=== PATIENT | female | born 1970 | race Caucasian/White ===

== ENCOUNTER 2021-12-22 21:26 | Emergency (ER) | payer MEDICAID ==
[~2021-12-22] VITALS: Ht 167.6 cm; Wt 87.1 kg
[~2021-12-22 21:26] MED LIST: ALBU-118 IH; FLUT1DSK4 IH
[2021-12-22 21:43] VITALS: BP 156/89
--- NOTE | 2021-12-22 21:49 | NUR ---
patient to [facility] ambulatory
[2021-12-22] MEDS ORDERED: HYDROcodone/APAP 10/325 MG 1 TAB TAB PO STA (23:23)
[2021-12-22] MEDS ORDERED: IBUPROFEN 600 MG TAB PO ONE (23:25)
[2021-12-23] MEDS ORDERED: ACET-10509 PO (00:29)
[2021-12-23] MEDS ORDERED: IBUP-2213 PO (00:30)
[2021-12-23 00:38] VITALS: BP 156/89
--- NOTE | 2021-12-23 00:38 | NUR ---
Patient discharged with v/s stable. Written and verbal after care instructions given and explained. Patient alert, oriented and verbalized understanding of instructions. Wheel Chair Assisted to lobby. All questions addressed prior to discharge. ID band removed. Patient advised to follow up with PMD. Rx of tylenol extra strength tab and ibuprofen given. Patient educated on indication of medication including possible reaction and side effects. Opportunity to ask questions provided and answered.
== END 2021-12-23 00:38 | disposition home or self-care (01) ==
LOC: MED 21:26
DX: S92.535A Nondisplaced fracture of distal phalanx of left lesser toe(s), initial encounter for closed fracture (principal); J45.909 Unspecified asthma, uncomplicated; Z79.899 Other long term (current) drug therapy; W22.8XXA Striking against or struck by other objects, initial encounter; Y93.89 Activity, other specified; Y92.89 Other specified places as the place of occurrence of the external cause; Y99.8 Other external cause status
CPT/HCPCS: 73660; 99283

== ENCOUNTER 2022-09-19 21:30 | Inpatient (IN) | payer MEDICAID ==
[~2022-09-19] VITALS: Ht 167.6 cm; Wt 85.7 kg
[~2022-09-19 21:30] MED LIST changes: +ACET-10509 PO; +IBUP-2213 PO
--- NOTE | 2022-09-19 21:42 | NUR ---
Dr. SANCHEZ examining patient in triage.
[2022-09-19] MEDS ORDERED: ALBUTEROL SULFATE/IPRATROPIU 3 ML SOL IH ONE ×3 (21:45)
[2022-09-19] MEDS ORDERED: predniSONE 20 MG TAB PO ONE (21:45)
--- NOTE | 2022-09-19 21:48 | NUR ---
PT TAKEN TO CHAIR C
[2022-09-19 22:16] LABS: ANION GAP 13.9 (8-16); CARBON DIOXIDE 27.9 mmol/L (21-32); CREATININE 0.8 mg/dL (0.6-1.3); POTASSIUM 3.8 mmol/L (3.5-5.1)
[2022-09-19 22:19] LABS: BASOPHILS # (AUTO) 0.1 K/uL (0.00-0.22); BASOPHILS % (AUTO) 0.6 % (0.0-2.0); EOSINOPHILS % (AUTO) 0.1 % (0.0-4.0); HEMATOCRIT 43.4 % (36-48); HEMOGLOBIN 14.5 g/dL (12.0-16.0); LYMPHOCYTES # (AUTO) 1.1 K/uL (2.5-16.5); LYMPHOCYTES % (AUTO) 4.7 % (20.5-51.1); MEAN CORPUSCULAR HEMOGLOBIN 29 pg (27-31); MEAN CORPUSCULAR HGB CONC 33 g/dL (33-37); MEAN CORPUSCULAR VOLUME 87.7 fL (80-94); MONOCYTES # (AUTO) 0.9 K/uL (0.8-1.0); MONOCYTES % (AUTO) 3.7 % (1.7-9.3); NEUTROPHILS # (AUTO) 21.2 K/uL (1.8-7.7); NEUTROPHILS % (AUTO) 90.9 % (42.2-75.2); PLATELET COUNT (AUTO) 341 K/uL (140-450); RED BLOOD CELL COUNT(AUTO) 4.96 MIL/uL (4.20-5.40); RED CELL DISTRIBUTION WIDTH 13.4 % (11.6-13.7); WHITE BLOOD COUNT (AUTO) 23.3 K/uL (4.8-10.8)
[2022-09-19 22:20] LABS: MAGNESIUM 1.2 mg/dL (1.8-2.4)
[2022-09-19] MEDS ORDERED: ACETAMINOPHEN EXTRA STRENGTH 500 MG TAB ONE (22:39)
[2022-09-19] MEDS ORDERED: ACETAMINOPHEN EXTRA STRENGTH 500 MG TAB PO ONE ×2 (22:45→22:55)
[2022-09-20] MEDS ORDERED: AZITHROMYCIN 250 MG TAB PO ONE (00:05)
[2022-09-20] MEDS ORDERED: cefTRIAXone 1,000 MG VIAL ONE ×2 (00:59→23:46)
[2022-09-20] MEDS ORDERED: ALBUTEROL SULFATE/IPRATROPIU 3 ML SOL IH ONE ×2 (01:20→01:22)
--- NOTE | 2022-09-20 07:17 | NUR ---
Pt report given to STEPHANIE GIVENS. Transfer of care at this time.
--- NOTE | 2022-09-20 08:13 | NUR ---
PT RECEIVED, CARE ASSUMED. PT LAYING IN BED ASLEEP. NO ACUTE DISTRESS NOTED. WILL CONTINUE TO MONITOR. NOTED V/S
[2022-09-20] MEDS ORDERED: SODIUM PHOS / POTASSIUM PHOS 1 PKT PDR PO PRN (08:45)
[2022-09-20] MEDS ORDERED: ACETAMINOPHEN 325 MG TAB PO PRN (08:45)
[2022-09-20] MEDS ORDERED: DOCUSATE SODIUM 100 MG GELCAP PO PRN (08:45)
[2022-09-20] MEDS ORDERED: MAGNESIUM OXIDE 400 MG TAB PO PRN (08:45)
[2022-09-20] MEDS ORDERED: MORPHINE SULFATE 2 MG/ML SYR IVP PRN (08:45)
[2022-09-20] MEDS ORDERED: ONDANSETRON 4 MG/2 ML VIAL IM/IVP PRN (08:45)
[2022-09-20] MEDS ORDERED: POTASSIUM CHLORIDE 10 MEQ TABER PO PRN (08:45)
[2022-09-20] MEDS ORDERED: HYDROcodone/APAP 5/325 MG 1 TAB TAB PO PRN (08:45)
[2022-09-20] MEDS: PANTOPRAZOLE 40 MG TABEC PO SCH (09:00)
[2022-09-20 10:10] LABS: HEMATOCRIT 40.9 % (36-48); HEMOGLOBIN 13.6 g/dL (12.0-16.0); MEAN CORPUSCULAR HEMOGLOBIN 29 pg (27-31); MEAN CORPUSCULAR HGB CONC 33 g/dL (33-37); MEAN CORPUSCULAR VOLUME 87.7 fL (80-94); PLATELET COUNT (AUTO) 313 K/uL (140-450); RED BLOOD CELL COUNT(AUTO) 4.66 MIL/uL (4.20-5.40); RED CELL DISTRIBUTION WIDTH 13.5 % (11.6-13.7); WHITE BLOOD COUNT (AUTO) 22.4 K/uL (4.8-10.8)
[2022-09-20 10:22] LABS: ANION GAP 16.1 (8-16); CARBON DIOXIDE 27.5 mmol/L (21-32); CREATININE 1.2 mg/dL (0.6-1.3); POTASSIUM 3.6 mmol/L (3.5-5.1)
[2022-09-20 10:35] LABS: MAGNESIUM 1.6 mg/dL (1.8-2.4); PHOSPHORUS 4.6 mg/dL (2.5-4.9)
[2022-09-20 11:13] LABS: BASOPHILS % (MANUAL) 0 % (0-2); BLASTS, MANUAL % 0 % (0-0); EOSINOPHILS % (MANUAL) 0 % (0-4); LYMPHOCYTES % (MANUAL) 4 % (20-46); METAMYELOCYTES % 0 % (0-0); MONOCYTES % (MANUAL) 4 % (5-12); MYELOCYTES % 0 % (0-0); OTHER CELLS,MANUAL % 0 (0-0); PROMYELOCYTES % 0 % (0-0)
[2022-09-20 11:15] LABS: BUFFY COAT SMEAR PREP N
[2022-09-20] MEDS ORDERED: MAG SULF 2000 MG/WATER PREMIX 50 ML IV SCH (14:32)
[2022-09-20] MEDS ORDERED: DEXTROSE 50% 50 ML SYR IVP PRN (14:35)
[2022-09-20] MEDS ORDERED: INSULIN LISPRO SLIDING SCALE 100 UNITS/ML VIAL SUBQ PRN (14:35)
--- NOTE | 2022-09-20 15:06 | NUR ---
DC PLANNING NICOLE MET W/ PT AT BEDSIDE TO COMPLETE ASSESSMENT. PT REPORTS RESIDING IN A MOBILE HOME WITH HER DAUGHTER AT THE ADDRESS LISTED ON FILE. PT IDENTIFIED HER DAUGHTER LANDEN BURCH, EMERGENCY CONTACT. PT DECLINED AD IN PLACE AND DECLINED AD OFFERED BY SW. PT REPORTS LAST VISIT WITH PCP, DR. SAMSON 1 MONTH AGO. PT REPORTS MEETING WITH PCP NEEDED. PT REPORTS MEDICATION COMPLIANCE AND DENIES BARRIERS IN ACCESS TO MEDICATIONS. PT REPORTS RECEIVING MEDICATION FORM [facility] ON JUNIOR IN POINT LAY, WHEN NEEDED. PT REPORTS BEING INDEPENDENT IN ALL ACTIVITIES AND DENIES USE OF DME. PT REPORTS UTILIZING NEBULIZER AT HOME. PT DENIES HX OF HH, SNF PLACEMENT, DIABETES,DIALYSIS [place]. PT REPORTS DC PLAN IS TO RETURN HOME WHEN STABLE WITH DAUGHTER OR SISTER PROVIDING TRANSPORTATION WHEN STABLE. SW INQUIRED ON RESOURCES NEEDED, PT DECLINED AT THIS TIME. Addendum: 09/20/22 at 1506 by Yang CURIEL Amended: Links added.
--- NOTE | 2022-09-20 15:28 | NUR ---
PATIENT HAS BEEN SCREENED AND CATEGORIZED MODERATE NUTRITION RISK. PATIENT WILL BE SEEN WITHIN 3-5 DAYS OF ADMISSION. 09/23/[address]
[2022-09-20] MEDS: BLOOD GLUCOSE MONITORING 1 DEV DEV FS SCH ×2 (16:30→21:00)
--- NOTE | 2022-09-20 19:30 | NUR ---
RECVD PATIENT ALERT AWAKE ORIENTED AMBULATORY.
[2022-09-20] MEDS: ALBUTEROL SULFATE/IPRATROPIU 3 ML SOL IH PRN (20:08)
[2022-09-20] MEDS ORDERED: AZITHROMYCIN 250 MG TAB PO SCH (21:00)
--- NOTE | 2022-09-20 23:30 | NUR ---
ALL DUE MEDS WAS GIVEN AND TOLERATED WELL.
[2022-09-21] MEDS: ALBUTEROL SULFATE/IPRATROPIU 3 ML SOL IH PRN (02:34)
--- NOTE | 2022-09-21 03:00 | NUR ---
Patient appears to be resting comfortably in bed. Vital Signs within normal limits. Respirations even and unlabored.
--- NOTE | 2022-09-21 07:05 | NUR ---
PT RECEIVED, CARE ASSUMED. PT ASLEEP, NO ACUTE DISTRESS NOTED. WILL CONTINUE TO MONITOR.
[2022-09-21] MEDS: BLOOD GLUCOSE MONITORING 1 DEV DEV FS SCH ×3 (07:30→17:06)
--- NOTE | 2022-09-21 07:30 | NUR ---
REPORT GIVEN TO CHON BROWN, TRANSFER OF CARE AT THIS TIME
[2022-09-21] MEDS: PANTOPRAZOLE 40 MG TABEC PO SCH (09:00)
[2022-09-21 09:10] LABS: ANION GAP 11.6 (8-16); CARBON DIOXIDE 31.9 mmol/L (21-32); CREATININE 0.8 mg/dL (0.6-1.3); POTASSIUM 3.5 mmol/L (3.5-5.1)
[2022-09-21 09:35] LABS: BASOPHILS # (AUTO) 0.1 K/uL (0.00-0.22); BASOPHILS % (AUTO) 0.4 % (0.0-2.0); EOSINOPHILS # (AUTO) 0.2 K/uL (0-0.4); EOSINOPHILS % (AUTO) 1.9 % (0.0-4.0); HEMATOCRIT 40.2 % (36-48); HEMOGLOBIN 13.2 g/dL (12.0-16.0); LYMPHOCYTES # (AUTO) 2.3 K/uL (2.5-16.5); LYMPHOCYTES % (AUTO) 18.1 % (20.5-51.1); MEAN CORPUSCULAR HEMOGLOBIN 29 pg (27-31); MEAN CORPUSCULAR HGB CONC 33 g/dL (33-37); MEAN CORPUSCULAR VOLUME 88.9 fL (80-94); MONOCYTES # (AUTO) 0.7 K/uL (0.8-1.0); MONOCYTES % (AUTO) 5.8 % (1.7-9.3); NEUTROPHILS # (AUTO) 9.2 K/uL (1.8-7.7); NEUTROPHILS % (AUTO) 73.8 % (42.2-75.2); PLATELET COUNT (AUTO) 322 K/uL (140-450); RED BLOOD CELL COUNT(AUTO) 4.52 MIL/uL (4.20-5.40); RED CELL DISTRIBUTION WIDTH 13.6 % (11.6-13.7); WHITE BLOOD COUNT (AUTO) 12.5 K/uL (4.8-10.8)
[2022-09-21] MEDS ORDERED: methylPREDNISolone SS 40 MG/ML VIAL IVP SCH (13:00)
--- NOTE | 2022-09-21 16:45 | NUR ---
ACCU CHECK DONE: 279. PT REFUSED INSULIN.
--- NOTE | 2022-09-21 20:12 | NUR ---
SPOKE WITH DR ANDREWS AND WILL DC PATIENT TO HOME. PT IS AWARE. PATIENT SP02 94% RA. DID A ROAD TEST WITH PT AND TOLERATED WELL. PENDING DC ORDERS
--- NOTE | 2022-09-21 20:34 | NUR ---
PT IS RESTING IN BED. A&OX4 SP02 95% RA. PT IS ADMITTED TO HOSPITAL , BUT IS GETTING DC PER DR ANDREWS. ROAD TEST PT AND TOLERATED WELL. PT ON [employer] BEDSIDE RAILS UPX1. BED AT LOWEST LEVEL
[2022-09-21 21:03] VITALS: BP 133/58
--- NOTE | 2022-09-21 21:19 | NUR ---
Patient discharged with v/s stable. Written and verbal after care instructions given and explained. Patient verbalized understanding. Ambulatory with steady gait. All questions addressed prior to discharge. Advised to follow up with PMD.
== END 2022-09-21 21:19 | disposition home or self-care (01) | DRG 720 ==
LOC: MED 21:30 → MTU 09-20 01:57 → OBSVTOIN 09-20 14:35 → MTU 09-21 18:36
PROVIDERS: ADMIT Hospitalist; ATTEND Hospitalist
DX: A41.9 Sepsis, unspecified organism (principal); J96.01 Acute respiratory failure with hypoxia; J18.9 Pneumonia, unspecified organism; E87.1 Hypo-osmolality and hyponatremia; J45.901 Unspecified asthma with (acute) exacerbation; E87.8 Other disorders of electrolyte and fluid balance, not elsewhere classified; E83.42 Hypomagnesemia; Z20.822 Contact with and (suspected) exposure to COVID-19; R09.02 Hypoxemia; E66.9 Obesity, unspecified; Z83.42 Family history of familial hypercholesterolemia; Z80.1 Family history of malignant neoplasm of trachea, bronchus and lung; Z80.0 Family history of malignant neoplasm of digestive organs; Z80.8 Family history of malignant neoplasm of other organs or systems; Z82.49 Family history of ischemic heart disease and other diseases of the circulatory system; Z83.3 Family history of diabetes mellitus; Z90.49 Acquired absence of other specified parts of digestive tract; Z68.30 Body mass index [BMI] 30.0-30.9, adult
CPT/HCPCS: 36415; 71045; 80048; 83036; 83605; 83735; 84100; 85025; 87040; 94640; 96365; 99285; J0696; J1815; J2920; J3475; J7060; J7512

== ENCOUNTER 2024-06-08 22:52 | Emergency (ER) | payer MEDICAID ==
[~2024-06-08] VITALS: Ht 167.6 cm; Wt 81.6 kg
[~2024-06-08 22:52] MED LIST changes: -ACET-10509 PO; +ACET500T99 PO
[2024-06-08 22:59] VITALS: BP 165/90; PULSE 97; RESP 16; TEMP 96.9; O2SAT 98
[2024-06-08 23:23] VITALS: BP 165/90; PULSE 97; RESP 16; TEMP 96.9
[2024-06-08] MEDS ORDERED: ACET-8905 PO (23:28)
[2024-06-08] MEDS ORDERED: IBUP-2213 PO (23:28)
[2024-06-08] MEDS: KETOROLAC 60 MG/2 ML VIAL IM ONE (23:32)
[2024-06-08 23:59] VITALS: O2SAT 98
== END 2024-06-09 00:38 | disposition home or self-care (01) ==
LOC: MED 22:52
DX: M25.532 Pain in left wrist (principal); J45.909 Unspecified asthma, uncomplicated; R03.0 Elevated blood-pressure reading, without diagnosis of hypertension; Z79.1 Long term (current) use of non-steroidal anti-inflammatories (NSAID); Z79.899 Other long term (current) drug therapy
CPT/HCPCS: 96372; 99283; J1885